=== PATIENT | male | born 1960 | race Caucasian/White ===

== ENCOUNTER 2016-09-30 09:38 | Emergency (ER) | payer OTHER ==
[~2016-09-30] VITALS: Ht 172.7 cm; Wt 70.3 kg
[~2016-09-30 09:38] MED LIST: ANUSOL HC30 GM TOP; PROCTOFOAM TOP
--- NOTE | 2016-09-30 10:10 | ED MVC/FALL/TRAUMA COMPLAINT ---
History of Present Illness General Chief Complaint: Fall Stated Complaint: FALL/LBP/LFT HAND LAC/ST WORK Source: patient Exam Limitations: no limitations Vital Signs & Intake/Output Vital Signs & Intake/Output Vital Signs Date Time Temp Pulse Resp B/P Pulse O2 O2 Flow FiO2 Ox Delivery Rate 09/30 1106 98.6 76 18 126/84 98 Room Air 09/30 0942 97.9 110 16 127/89 96 Room Air Allergies Coded Allergies: MDX - Abacavir (ABACAVIR) (RASH 05/14/15) Reconcile Medications Hydrocortisone (Anusol HC) 30 GM CRM 1 COLLEEN TOP Q8H PRN hemorrhoid apply to affected area(s) Pramoxine (Proctofoam 1% 15 Gm Bottle) 15 GM AER 1 COLLEEN TOP 4 TIMES/DAY PRN RECTAL PAIN Tylenol With Codeine (Tylenol With Codeine #3 Tablet) 300 MG-30 MG TABLET 1 TAB PO Q4-6 PRN PRN PAIN Triage Note: PT STATES HE WAS GOING TO A CLIENTS HOUSE AND SLIPPED ON THE DRIVEWAY AND FELL ON HIS LEFT HIP AND CUT HIS LEFT HAND. WOUND CLEANED AND BANDAID APPLIED TO WOUND BLEEDING CONTROLED AT TRIAGE. PT STATES HIS LEFT HIP HURTS. PT AMBULATED Triage Nurses Notes Reviewed? yes HPI: 56-year-old male here with complaints of left-sided low back and posterior pelvic pain after he slipped in the snow and fell onto the ground earlier today. 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 He was able to get into the house and help with his client shower however the pain gradually has been getting worse and is moderate at this time, worse with motion and bending and standing. No previous injuries to the area. He has pain radiating to the lateral hip. There is no nausea no vomiting. He has complaints of a small abrasion to left palm area. There is been no treatment thus far. (GRETA CAMACHO) Past History Travel History Traveled to [place] past 21 day No Medical History Any Pertinent Medical History? see below for history Cardiovascular: hypertension Other Medical Hx: HIV Surgical History Surgical History: eye surgery Psychosocial History What is your primary language Kyrgyz Tobacco Use: Quit >30 days ago ETOH Use: denies use Illicit Drug Use: denies illicit drug use Family History Hx Contributory? No (GRETA CAMACHO) Review of Systems Review of Systems Constitutional: Reports: see HPI. Eyes: Reports: no symptoms. Ears, Nose, Throat, Mouth: Reports: no symptoms. Respiratory: Reports: no symptoms. Cardiovascular: Reports: no symptoms. Gastrointestinal/Abdominal: Reports: no symptoms. Genitourinary: Reports: no symptoms. Musculoskeletal: Reports: see HPI. Skin: Reports: no symptoms. Neurological/Psychological: Reports: no symptoms. All Other Systems: Reviewed and Negative (GRETA CAMACHO) Physical Exam Physical Exam General Appearance: well developed/nourished Comments: Well-developed well-nourished no apparent distress. HEENT: Atraumatic, extraocular motion intact Neck: Supple, no lymphadenopathy Back: Tenderness to the transverse process region left side lower lumbar region with mild swelling noted. Also tenderness noted to left posterior superior pelvic region . No midline tenderness. No deformity or signs of trauma. There is no rashes present. Range of motion is limited secondary to pain Straight leg raise is negative bilaterally. Bilateral lower extremities are neurovascularly intact with sensation and motor grossly intact. Gait is antalgic. Respiratory: No respiratory distress Abdomen: Soft nontender nondistended Extremities: No edema, full range of motion Neuro: Alert and oriented x3 Psych: Mood affect normal, normal memory normal judgment. Skin: Warm and dry, no rash on exposed skin Left hand, left palm with 1 cm superficial abrasion/skin tear. Skin edges approximate well. No swelling. Minimal tenderness. No suspected foreign body Core Measures ACS in differential dx? No Severe Sepsis Present: No Septic Shock Present: No (GRETA CAMACHO) Progress Differential Diagnosis: aoritic dissection, abd injury, C/T/L spine injury, ext injury, ICH, pelvis injury, pnemothorax, spinal cord injury Plan of Care: Orders Procedure Date/time Status XRY-AP PELVIS 09/30 1003 Active XRY-LUMBOSACRAL SPINE AP & LAT 09/30 1003 Active Current Medications Sig/Emmie Start time Last Medication Dose Stop Time Status Admin Ibuprofen 600 MG ONCE ONE 09/30 1015 AC (Motrin) 09/30 1016 Diagnostic Imaging: Viewed by Me: Radiology Read. Discussed w/RAD: Radiology Read. Radiology Impression: PATIENT: GISELL ROSS PRESENT AGE: 56 PATIENT ACCOUNT NO: [id number] : 56 LOCATION: [facility] ORDERING PHYSICIAN: GRETA LOPEZ SERVICE DATE: 09/30/16 EXAM TYPE: RAD - XRY-AP PELVIS; XRY-LUMBOSACRAL SPINE AP & LAT EXAMINATIONS: LUMBOSACRAL SPINE 2 VIEWS AND PELVIS 1 VIEW CLINICAL INFORMATION: Back and left sided pelvic pain after fall. COMPARISON: None. TECHNIQUE: AP and lateral views of the lumbosacral spine are provided. A supine view of the pelvis is provided. FINDINGS: There are no fractures. The lumbar vertebrae are in normal alignment. Disc heights and vertebral body heights are well-preserved. There is mild anterior osteophyte formation within the lumbar spine. There are no fractures. Both femoral heads are seated within well-formed acetabula. No dysplastic changes are identified. The visualized bowel gas pattern is unremarkable. IMPRESSION: No evidence for acute injury to the lumbar spine or pelvis. DICTATED BY: JASMINA HOOVER MD DATE/ TIME DICTATED:09/30/161048 DRIVEWAY SEALER:ANITA DATE/TIME TRANSCRIBED: 09/30/161048 Comments: LEFT PALM WOUND WAS CLEANSED and 2 layers of Dermabond glue applied. Patient tolerated well without complications, wound edges approximated nicely X-rays unremarkable for fracture, patient given Motrin and feels better on reevaluation. He is stable for discharge home. Instructions for glue and watch for signs of infection discussed (GRETA CAMACHO) Departure Departure Disposition: HOME OR SELF CARE Condition: Stable Clinical Impression Primary Impression: Lumbar contusion Qualifiers: Encounter type: initial encounter Qualified Code: S30.0XXA - Contusion of lower back and pelvis, initial encounter Secondary Impressions: Abrasion of hand, left Qualifiers: Encounter type: initial encounter Qualified Code: S60.512A - Abrasion of left hand, initial encounter Referrals: UNKNOWN (PCP/Family) RAI LARSON MD Additional Instructions: Take medications for pain, spasm and inflammation as needed. Rest, cold compresses, gentle stretching. Follow-up with orthopedist if no better in the next 5-7 days. Watch for worsening symptoms of pain, numbness or weakness down the leg, return with any concerns. Departure Forms: Customer Survey General Discharge Information Prescriptions: Current Visit Scripts Tylenol With Codeine (Tylenol With Codeine #3 Tablet) 1 TAB PO Q4-6 PRN PRN PAIN #15 TAB (GRETA CAMACHO) PA/[employer] Co-Sign Statement Statement: ED Attending supervision documentation- [] I saw and evaluated the patient. I have also reviewed all the pertinent lab results and diagnostic results. I agree with the findings and the plan of care as documented in the PA's/SEAMLESS TUBE ROLLER's documentation. x I have reviewed the ED Record and agree with the PA's/SEAMLESS TUBE ROLLER's documentation. [] Additions or exceptions (if any) to the PAs/SEAMLESS TUBE ROLLER's note and plan are summarized below: [] (LOGAN QUINONEZ,MARIELLE)
--- NOTE | 2016-09-30 10:53 | RADIOLOGY REPORT ---
EXAMINATIONS: LUMBOSACRAL SPINE 2 VIEWS AND PELVIS 1 VIEW CLINICAL INFORMATION: Back and left sided pelvic pain after fall. COMPARISON: None. TECHNIQUE: AP and lateral views of the lumbosacral spine are provided. A supine view of the pelvis is provided. FINDINGS: There are no fractures. The lumbar vertebrae are in normal alignment. Disc heights and vertebral body heights are well-preserved. There is mild anterior osteophyte formation within the lumbar spine. There are no fractures. Both femoral heads are seated within well-formed acetabula. No dysplastic changes are identified. The visualized bowel gas pattern is unremarkable. IMPRESSION: No evidence for acute injury to the lumbar spine or pelvis.
[2016-09-30] MEDS ORDERED: TYLENOL WITH C1 EACH PO (11:00)
[2016-09-30 11:06] VITALS: BP 126/84
== END 2016-09-30 11:06 ==
LOC: ERH 09:38
DX: S30.0XXA Contusion of lower back and pelvis, initial encounter (principal); S60.512A Abrasion of left hand, initial encounter; W00.0XXA Fall on same level due to ice and snow, initial encounter; Y92.014 Private driveway to single-family (private) house as the place of occurrence of the external cause
CPT/HCPCS: 72100; 72170